=== PATIENT | female | born 1945 | race Caucasian/White ===

== ENCOUNTER → 2022-06-11 | Outpatient (CLI) | payer MEDICARE ==
[2022-06-11 15:14] LABS: HEMATOCRIT 30.1 % (37.0-47.0); HEMOGLOBIN 9.7 g/dL (12.5-16.0); MEAN PLATELET VOLUME 9.2 fl (7.4-10.4); RED BLOOD COUNT 2.94 M/mm3 (4.10-5.30); RED CELL DISTRIBUTION WIDTH 14.1 % (11.5-14.5); WHITE BLOOD COUNT 4.2 K/mm3 (4.8-10.8)
[2022-06-11 15:20] LABS: CALCIUM 9.1 mg/dL (8.3-10.5)
[2022-06-11 15:31] LABS: POTASSIUM 5.9 mmol/L (3.5-5.1)
== END ==
LOC: LAB 14:55
PROVIDERS: Internal Medicine Interventional Cardiology
DX: I10 Essential (primary) hypertension (principal)

== ENCOUNTER → 2023-02-24 | Outpatient (CLI) | payer MEDICARE | LOC: RAD 13:31 | DX: M81.0 Age-related osteoporosis without current pathological fracture (principal) ==

== ENCOUNTER → 2023-11-09 | Outpatient (CLI) | payer MEDICARE ==
[2023-11-09 11:04] LABS: BASO # 0.07 K/mm3 (0.02-0.10); EOS # 0.36 K/mm3 (0.04-0.40); EOS % 8.1 % (1.0-5.0); HEMATOCRIT 32.1 % (37.0-47.0); HEMOGLOBIN 10.4 g/dL (12.5-16.0); LYMPH# 1.66 K/mm3 (1.50-4.00); MEAN CELL VOLUME 99 fl (78-100); MEAN CORPUSCULAR HEMOGLOBIN 32 pg (27-31); MEAN CORPUSCULAR HGB CONC 32 g/dL (33-37); MEAN PLATELET VOLUME 9.7 fl (7.4-10.4); MONO # 0.27 K/mm3 (0.20-0.80); NEU # 2.09 K/mm3 (1.40-6.50); PLATELET COUNT 213 K/mm3 (130-400); RED BLOOD COUNT 3.23 M/mm3 (4.10-5.30); WHITE BLOOD COUNT 4.5 K/mm3 (4.8-10.8)
[2023-11-09 11:09] LABS: CALCIUM 8.9 mg/dL (8.3-10.5)
[2023-11-09 11:19] LABS: PH-URINE 5.5 (5.0 - 8.0); URINE APPEARANCE SLIGHTLY CLOUDY (CLEAR); URINE BILIRUBIN 1+ (NEGATIVE); URINE BLOOD NEGATIVE (NEGATIVE); URINE COLOR DARK YELLOW (YELLOW); URINE GLUCOSE NEGATIVE (NEGATIVE); URINE KETONE NEGATIVE (NEGATIVE); URINE NITRATE NEGATIVE (NEGATIVE); URINE PROTEIN(semi-quant) 2+ (NEGATIVE)
[2023-11-09 11:20] LABS: URINE LEUKOCYTE ESTERASE TRACE (NEGATIVE)
[2023-11-09 11:21] LABS: URINE MUCUS PRESENT (NOT PRESENT)
== END ==
LOC: LAB 10:36
PROVIDERS: Internal Medicine Nephrology
DX: N18.4 Chronic kidney disease, stage 4 (severe) (principal)

== ENCOUNTER 2024-01-01 10:01 | Emergency (ER) | payer MEDICARE ==
[~2024-01-01] VITALS: Ht 157.5 cm; Wt 69.7 kg
[2024-01-01 10:28] LABS: BASO # 0.05 K/mm3 (0.02-0.10); EOS # 0.44 K/mm3 (0.04-0.40); EOS % 7.5 % (1.0-5.0); HEMATOCRIT 35.9 % (37.0-47.0); HEMOGLOBIN 11.8 g/dL (12.5-16.0); LYMPH# 2.01 K/mm3 (1.50-4.00); MEAN CELL VOLUME 96 fl (78-100); MEAN CORPUSCULAR HEMOGLOBIN 32 pg (27-31); MEAN CORPUSCULAR HGB CONC 33 g/dL (33-37); MEAN PLATELET VOLUME 9.6 fl (7.4-10.4); MONO # 0.37 K/mm3 (0.20-0.80); NEU # 2.98 K/mm3 (1.40-6.50); PLATELET COUNT 237 K/mm3 (130-400); RED BLOOD COUNT 3.73 M/mm3 (4.10-5.30); RED CELL DISTRIBUTION WIDTH 13.4 % (11.5-14.5); WHITE BLOOD COUNT 5.9 K/mm3 (4.8-10.8)
[2024-01-01] MEDS ORDERED: hydrALAZINE 20 MG/ML 1 ML VIAL IV ONE ×3 (10:30→13:15)
[2024-01-01 10:35] LABS: ALBUMIN 4.2 g/dL (3.4-4.8)
[2024-01-01] MEDS ORDERED: FUROSEMIDE20 MG PO (10:35)
[2024-01-01] MEDS ORDERED: GOOD NEIGHBOR P20 MG PO (10:36)
[2024-01-01] MEDS ORDERED: PANTOPRAZOLE SO40 MG PO (10:36)
[2024-01-01 10:37] LABS: CALCIUM 9.3 mg/dL (8.3-10.5)
[2024-01-01] MEDS ORDERED: ATORVASTATIN CA40 MG PO (10:37)
[2024-01-01] MEDS ORDERED: BYSTOLIC10 MG PO (10:37)
[2024-01-01] MEDS ORDERED: PROCARDIA XL60 M1 PO (10:37)
[2024-01-01 10:38] LABS: TOTAL PROTEIN 7.5 g/dL (6.2-8.1)
[2024-01-01] MEDS ORDERED: RANOLAZINE ER500 MG PO (10:38)
[2024-01-01] MEDS ORDERED: ARICEPT10 M1 PO (10:38)
[2024-01-01] MEDS ORDERED: MEMANTINE HCL10 MG PO (10:39)
[2024-01-01 10:40] LABS: TOTAL BILIRUBIN 0.3 mg/dL (0.2-1.2)
[2024-01-01] MEDS ORDERED: DESYREL 100MG100 MG PO (10:40)
[2024-01-01] MEDS ORDERED: SYNTHROID175 MCG PO (10:40)
[2024-01-01] MEDS ORDERED: PIOGLITAZONE HY45 MG PO (10:41)
[2024-01-01 11:54] LABS: PH-URINE 6.5 (5.0 - 8.0); URINE APPEARANCE CLEAR (CLEAR); URINE BILIRUBIN NEGATIVE (NEGATIVE); URINE BLOOD NEGATIVE (NEGATIVE); URINE COLOR LIGHT YELLOW (YELLOW); URINE GLUCOSE TRACE (NEGATIVE); URINE KETONE NEGATIVE (NEGATIVE); URINE NITRATE NEGATIVE (NEGATIVE); URINE PROTEIN(semi-quant) 2+ (NEGATIVE)
[2024-01-01 11:55] LABS: URINE LEUKOCYTE ESTERASE NEGATIVE (NEGATIVE); URINE WBC 0-1 /hpf (0-3)
[2024-01-01] MEDS ORDERED: APRESOLINE 10MG10 MG PO (11:55)
[2024-01-01] MEDS ORDERED: APRESOLINE 25MG25 MG PO (13:56)
[2024-01-01 14:12] VITALS: BP 156/59
== END 2024-01-01 14:12 | disposition home or self-care (01) ==
LOC: ED 10:01
PROVIDERS: Family Medicine
DX: I16.0 Hypertensive urgency (principal); I13.10 Hypertensive heart and chronic kidney disease without heart failure, with stage 1 through stage 4 chronic kidney disease, or unspecified chronic kidney disease; N18.4 Chronic kidney disease, stage 4 (severe); E11.22 Type 2 diabetes mellitus with diabetic chronic kidney disease; H05.20 Unspecified exophthalmos; Z79.899 Other long term (current) drug therapy; Z87.891 Personal history of nicotine dependence
CPT/HCPCS: J0360

== ENCOUNTER → 2024-05-09 | Outpatient (CLI) | payer MEDICARE ==
[~2024-05-09] MED LIST: APRESOLINE 10MG10 MG PO; APRESOLINE 25MG25 MG PO; ARICEPT10 M1 PO; ATORVASTATIN CA40 MG PO; BYSTOLIC10 MG PO; DESYREL 100MG100 MG PO; FUROSEMIDE20 MG PO; GOOD NEIGHBOR P20 MG PO; MEMANTINE HCL10 MG PO; PANTOPRAZOLE SO40 MG PO; PIOGLITAZONE HY45 MG PO; PROCARDIA XL60 M1 PO; RANOLAZINE ER500 MG PO; SYNTHROID175 MCG PO
[2024-05-09 10:58] LABS: BASO # 0.04 K/mm3 (0.02-0.10); EOS # 0.18 K/mm3 (0.04-0.40); HEMATOCRIT 33.5 % (37.0-47.0); HEMOGLOBIN 10.9 g/dL (12.5-16.0); LYMPH# 1.47 K/mm3 (1.50-4.00); MEAN CELL VOLUME 100 fl (78-100); MEAN CORPUSCULAR HEMOGLOBIN 33 pg (27-31); MEAN CORPUSCULAR HGB CONC 33 g/dL (33-37); MEAN PLATELET VOLUME 9.5 fl (7.4-10.4); MONO # 0.25 K/mm3 (0.20-0.80); NEU # 1.63 K/mm3 (1.40-6.50); PLATELET COUNT 189 K/mm3 (130-400); RED BLOOD COUNT 3.34 M/mm3 (4.10-5.30); RED CELL DISTRIBUTION WIDTH 14.2 % (11.5-14.5); WHITE BLOOD COUNT 3.6 K/mm3 (4.8-10.8)
[2024-05-09 11:03] LABS: ALBUMIN 4.1 g/dL (3.4-4.8)
[2024-05-09 11:05] LABS: CALCIUM 9.3 mg/dL (8.3-10.5)
[2024-05-09 11:21] LABS: PH-URINE 6.5 (5.0 - 8.0); URINE APPEARANCE CLEAR (CLEAR); URINE BILIRUBIN NEGATIVE (NEGATIVE); URINE BLOOD NEGATIVE (NEGATIVE); URINE COLOR YELLOW (YELLOW); URINE GLUCOSE NEGATIVE (NEGATIVE); URINE KETONE NEGATIVE (NEGATIVE); URINE LEUKOCYTE ESTERASE NEGATIVE (NEGATIVE); URINE MUCUS PRESENT (NOT PRESENT); URINE NITRATE NEGATIVE (NEGATIVE); URINE PROTEIN(semi-quant) 2+ (NEGATIVE); URINE WBC 0-1 /hpf (0-3)
== END ==
LOC: LAB 10:37
PROVIDERS: Internal Medicine Nephrology
DX: I12.9 Hypertensive chronic kidney disease with stage 1 through stage 4 chronic kidney disease, or unspecified chronic kidney disease (principal); N18.4 Chronic kidney disease, stage 4 (severe)